=== PATIENT | female | born 1985 | race Caucasian/White ===

== ENCOUNTER 2024-10-13 19:25 | Emergency (ER) | payer BC, SELFPAY ==
[2024-10-13 19:32] VITALS: BP 110/69; PULSE 112; RESP 20; TEMP 39; O2SAT 98
[2024-10-13 19:38] VITALS: BP 110/69; PULSE 112; RESP 20; TEMP 39; O2SAT 98
--- NOTE | 2024-10-13 19:41 | ED_ITS ---
HPI - URI/Sore Throat General Chief Complaint: Upper Respiratory Infection Stated Complaint: fever/cough/aches Time Seen by Provider: 10/13/24 19:40 Source: patient, RN notes reviewed and old records reviewed Mode of arrival: ambulatory Limitations: no limitations History of Present Illness HPI Narrative: 39 year old female who presents to [facility] care with complaints of being ill since Tuesday with fevers and cough. Patient reports that she was seen at [facility] 3 days ago and received Tessalon Perles for her cough. Patient reports that she has taken Tylenol for her fever with fever 102.2F this morning and took Tylenol then but has not taken anything since. Patient reports that they did chest xray when she was seen at [facility] and was normal. Patient states she wants to be better by Tuesday because she is going on trip. Patient denies any sore throat or any ear pain, denies any nausea vomiting or diarrhea. MD elicited complaint: fever and cough Onset (ago): day(s) (5-6 days) Severity: moderate Able to tolerate fluids by mouth: Yes Treatments prior to arrival: acetaminophen and other (Tessalon Perles) Related Data Home Medications Medication Instructions Recorded Confirmed benzonatate 200 mg capsule mg PO 10/13/24 fluoxetine 10 mg capsule mg 10/13/24 Allergies Allergy/AdvReac Type Severity Reaction Status Date / Time Sulfa (Sulfonamide Allergy Mild RASH Verified 11/13/16 11:46 Antibiotics) Review of Systems Review of Systems: CONSTITUTIONAL: Reports malaise, chills, sweats, or fever. EYES: Denies visual changes, redness, or discharge. ENT: Reports rhinorrhea, congestion, no sinus pain, no otalgia and no sore throat. CARDIOVASCULAR: Denies chest pain, palpitations, or edema. RESPIRATORY: Reports cough.? Denies dyspnea. GASTROINTESTINAL: Denies abdominal pain, nausea, vomiting, diarrhea SKIN: Denies rash or itching. MUSCULOSKELETAL: Denies myalgia. NEUROLOGIC: Denies headache. All systems reviewed & are unremarkable except as noted in HPI and below PMFSH Past Medical History Medical History (Updated 10/15/24 @ 21:15 by Magi Santos NP) Anxiety UTI (urinary tract infection) Social History Social History (Updated 10/15/24 @ 21:12 by Magi L. Tom, CLASSROOM AIDE) Smoking status: Never smoker Alcohol intake: current Alcohol use details: social Substance use type: does not use Living arrangements: with family Gender identity (if verbalized by the patient): Female Comments At time of signature, agree with nursing past medical, surgical, social and family history. There is no relevant family history pertinent to the presenting complaint Exam Narrative: GENERAL: Well-appearing, well-nourished, and in no acute distress. HEAD: Normocephalic EYES: PERRLA, conjunctivae clear ENT: Nares clear, turbinates edematous and erythematous, clear discharge. Mucous membranes moist. TM pearly cannon with dull light reflex bilaterally; no tragal tenderness. Oropharynx erythematous without lesions. Tonsils not enlarged and without exudate, no drooling, no hoarseness, no trismus, uvula midline. NECK: Supple. No lymphadenopathy CHEST: Clear to auscultation, breath sounds equal. No wheezing, rhonchi, rales, or stridor. No respiratory distress, speaks in full sentences. HEART: Regular rate and rhythm. No murmur heard. SKIN: Warm, dry, no rash. NEURO: Alert and oriented x3. PSYCH: Normal mood and affect Course Course Emergency Course: Patient is aware of diagnosis, understands and agrees to treatment plan.? Anticipatory guidance given.? Patient agrees to follow-up as directed and is aware of reasons to seek care at the emergency department. Portions of this record may have been created with voice recognition software Level of Care: Express Care Visit Vital Signs Vital signs: Vital Signs Temperature 39.0 C H 10/13/24 19:32 Pulse Rate 112 H 10/13/24 19:32 Respiratory Rate 20 10/13/24 19:32 Blood Pressure 110/69 10/13/24 19:32 Pulse Oximetry 98 10/13/24 19:32 Oxygen Delivery Room Air 10/13/24 19:32 Temperature 39.0 C H 10/13/24 19:38 Pulse Rate 112 H 10/13/24 19:38 Respiratory Rate 20 10/13/24 19:38 Blood Pressure 110/69 10/13/24 19:38 Pulse Oximetry 98 10/13/24 19:38 Oxygen Delivery Room Air 10/13/24 19:38 Reviewed MDM - URI/Sore Throat MDM Narrative Medical decision making narrative: Differential diagnosis considered: [place] virus, strep pharyngitis, allergic rhinitis, upper respiratory tract infection, sinusitis, rhinosinusitis, nasopharyngitis. viral pharyngitis, otitis media, otitis externa, pneumonia, bronchitis, viral cough syndrome, viral syndrome, and influenza.? Exam findings show no acute concerns or changes; patient is non-toxic appearing and is in no distress.? Patient is appropriate for outpatient treatment and follow-up. Differential Diagnosis Differential diagnosis: Likely upper respiratory infection, sinusitis, viral infection, bronchitis and other (acute cough) Medical Records Attestation: I reviewed the patient's medical records. Lab Data Attestation: I reviewed the patient's lab results. Critical Care Time Critical Care Time Critical Care Time: No Discharge Plan Discharge Clinical Impression: URI (upper respiratory infection), Cough Patient Disposition: Home, Self-Care Condition: Stable Instructions: Antibiotic Form, Upper Respiratory Infection (ED), Acute Cough (ED) Additional Instructions: Increase fluids especially juices and water [id number] cough and cold medicine of your choice for your symptoms Cough tablets as directed for cough--do not bite, chew or suck on--swallow whole Steroids as directed--take with food heat to the face 20-30 minutes 4-6 times a day for pain Salt water gargles, throat lozenges or throat sprays as desired Antibiotic as directed--finished the medication Alternate Tylenol ibuprofen for fever control Suggest Mucinex DM for cough If your symptoms persist, change or worsen significantly before you can contact your personal physician then please, without delay, go to the emergency department for further evaluation. Follow-up with PCP in 7-10 days or sooner if needed Prescriptions: New methylprednisolone [Medrol (Manolo)] 4 mg tablets,dose pack See Rx Instructions .ROUTE .COMPLEX Qty: 21 0RF Rx Instructions: orally per package directions azithromycin 250 mg tablet See Rx Instructions .ROUTE .COMPLEX Qty: 6 0RF Rx Instructions: For 250 mg dose pack: take 500 mg today (day 1), then 250 mg for 4 days (days 2-5) No Action benzonatate 200 mg capsule PO fluoxetine 10 mg capsule Follow-up/Referrals: PHYSICIAN NOT ON STAFF,NONSTAFF [Primary Care Provider] - Time of Disposition: 19:47 Quality [place] Coma Scale Eyes: Open Verbal: Oriented and Alert Motor: Follows Commands [place] Coma Total Score: 15
== END 2024-10-13 19:53 | disposition home or self-care (01) ==
PROVIDERS: Emergency Provider Registered Nurse
DX: J06.9 Acute upper respiratory infection, unspecified (principal); R05.9 Cough, unspecified
CPT/HCPCS: 99203; G0463